=== PATIENT | male | born 1995 | race Caucasian/White ===

== ENCOUNTER 2017-01-07 01:58 | Emergency (ER) | payer SELFPAY ==
[~2017-01-07] VITALS: Ht 185.4 cm; Wt 77.1 kg
[~2017-01-07 01:58] MED LIST: AMOXICILLIN500 M2 PO; AUGMENTIN 400 M1 CTB PO; MOTRIN400 MG PO; TYLENOL W/CODEI1 TA2 PO
[2017-01-07 02:07] VITALS: BP 156/89
[2017-01-07 02:50] LABS: BILIRUBIN NEGATIVE (NEGATIVE); BLOOD 3+ (NEGATIVE); CLARITY SL CLOUDY (CLEAR); COLOR RED (YELLOW); GLUCOSE NEGATIVE (NEGATIVE); KETONE NEGATIVE (NEGATIVE); LEUKO ESTERASE NEGATIVE (NEGATIVE); NITRITE NEGATIVE (NEGATIVE); PH 5.5 (5.0-9.0); PROTEIN TRACE (NEGATIVE); SPECIFIC GRAVITY 1.025 (1.005-1.030); UROBILINOGEN 0.2 E.U./dl (0.2-1.0)
[2017-01-07 02:51] LABS: BASO # 0.1 10*3/uL (0.0-0.1); BASO % 0.6 % (0.0-1.0); EOS # 0.1 10*3/uL (0.0-0.4); EOS % 0.9 % (1.0-4.0); HEMATOCRIT 48.3 % (42.0-52.0); HEMOGLOBIN 16.4 g/dl (14.0-18.0); IG # 0.1 10*3/uL (0.0-0.1); LYMPH % 24.4 % (27.0-41.0); MEAN CELL VOLUME 88.8 fl (80.0-94.0); MEAN CORPUSCULAR HGB 30.1 pg (27.0-31.0); MEAN PLATELET VOLUME 9.3 fl (9.6-12.3); MONO # 0.7 10*3/uL (0.1-1.0); MONO % 5.3 % (3.0-9.0); NEUT # 8.5 10*3/uL (2.3-7.9); NEUT % 68.3 % (47.0-73.0); PLATELET COUNT AUTOMATED 332 10*3/uL (130-400); RED BLOOD COUNT 5.44 10*6/uL (4.50-5.90); RED CELL DISTRI WIDTH 12.8 % (0-14.5); WHITE BLOOD COUNT 12.5 10*3/uL (4.8-10.8)
[2017-01-07 02:55] LABS: RBC TNTC rbc/hpf (0-2)
[2017-01-07 03:00] LABS: URINE REFLEX COMMENT YES (NO)
[2017-01-07 03:05] LABS: ALBUMIN 4.2 gm/dl (3.1-4.5); ALKALINE PHOSPHATASE 63 U/L (45-117); BILIRUBIN, TOTAL 0.4 mg/dl (0.2-1.0); BUN 8 mg/dl (7-24); CARBON DIOXIDE 26 mmol/L (21-32); CHLORIDE 106 mmol/L (98-107); EST GLOM FILT AFRICAN AMERICAN > 60 ml/min; GLUCOSE 91 mg/dL (65-99); POTASSIUM 3.3 mmol/L (3.5-5.1); SGOT/AST 18 IU/L (3-35); SGPT/ALT 22 U/L (12-78); SODIUM 143 mmol/L (136-145); TOTAL PROTEIN 7.3 gm/dL (6.4-8.2)
[2017-01-07 03:09] LABS: C-REACTIVE PROTEIN < 0.29 MG/DL (0-0.3)
[2017-01-07] MEDS ORDERED: ZOFRAN ODT4 MG SL (04:09)
[2017-01-07] MEDS ORDERED: PERCOCET 325 MG1 TA2 PO (04:09)
[2017-01-07] MEDS ORDERED: KETOROLAC10 MG PO (04:09)
== END 2017-01-07 04:54 | disposition home or self-care (01) ==
LOC: ED 01:58
PROVIDERS: Emergency Medicine Emergency Medical Services
DX: N20.1 Calculus of ureter (principal); N23 Unspecified renal colic; F17.200 Nicotine dependence, unspecified, uncomplicated

== ENCOUNTER 2017-01-13 01:07 | Emergency (ER) | payer OTHER ==
[~2017-01-13] VITALS: Ht 185.4 cm; Wt 77.1 kg
[~2017-01-13 01:07] MED LIST changes: +KETOROLAC10 MG PO; +PERCOCET 325 MG1 TA2 PO; +ZOFRAN ODT4 MG SL
[2017-01-13 01:12] VITALS: BP 160/91
== END 2017-01-13 01:49 | disposition home or self-care (01) ==
LOC: ED 01:07
DX: N23 Unspecified renal colic (principal); Z87.442 Personal history of urinary calculi; F17.200 Nicotine dependence, unspecified, uncomplicated

== ENCOUNTER 2017-04-21 16:35 | Emergency (ER) | payer OTHER ==
[~2017-04-21] VITALS: Ht 185.4 cm; Wt 77.1 kg
[2017-04-21 16:40] VITALS: BP 155/73
== END 2017-04-21 18:42 | disposition home or self-care (01) ==
LOC: ED 16:35
DX: S86.911A Strain of unspecified muscle(s) and tendon(s) at lower leg level, right leg, initial encounter (principal); F17.200 Nicotine dependence, unspecified, uncomplicated; X50.9XXA Other and unspecified overexertion or strenuous movements or postures, initial encounter; Y93.89 Activity, other specified; Y92.89 Other specified places as the place of occurrence of the external cause; Y99.9 Unspecified external cause status

== ENCOUNTER 2018-08-21 16:15 | Emergency (ER) | payer SELFPAY ==
[~2018-08-21] VITALS: Ht 182.8 cm; Wt 81.6 kg
[2018-08-21 16:15] VITALS: BP 139/69
[2018-08-21] MEDS ORDERED: Motrin,Rufen800 MG PO (17:59)
[2019-02-21] MEDS ORDERED: ALEVE220 M1 PO (15:10)
[2019-02-21] MEDS ORDERED: MEDROL DOSEPAK4 MG PO (16:25)
[2019-02-21] MEDS ORDERED: CYCLOBENZAPRINE10 MG PO (16:25)
== END 2018-08-21 18:03 | disposition home or self-care (01) ==
LOC: ED 16:15
DX: S46.912A Strain of unspecified muscle, fascia and tendon at shoulder and upper arm level, left arm, initial encounter (principal); F17.200 Nicotine dependence, unspecified, uncomplicated; W00.0XXA Fall on same level due to ice and snow, initial encounter; Y93.89 Activity, other specified; Y92.89 Other specified places as the place of occurrence of the external cause; Y99.8 Other external cause status

== ENCOUNTER 2019-01-21 20:19 | Emergency (ER) | payer SELFPAY ==
[~2019-01-21] VITALS: Ht 182.8 cm; Wt 81.6 kg
[~2019-01-21 20:19] MED LIST changes: +Motrin,Rufen800 MG PO
[2019-01-21 20:22] VITALS: BP 157/90
[2019-01-21 20:42] LABS: BILIRUBIN NEGATIVE (NEGATIVE); BLOOD NEGATIVE (NEGATIVE); CLARITY CLEAR (CLEAR); COLOR YELLOW (YELLOW); GLUCOSE NEGATIVE (NEGATIVE); KETONE NEGATIVE (NEGATIVE); LEUKO ESTERASE NEGATIVE (NEGATIVE); NITRITE NEGATIVE (NEGATIVE); PH 6.5 (5.0-9.0)
[2019-01-21 20:51] LABS: BACTERIA TRACE; EPITHELIAL CELLS 0-2; WBC 0-2 wbc/hpf (0-5)
[2019-01-21] MEDS ORDERED: NAPROSYN500 MG PO (20:55)
[2019-02-21] MEDS ORDERED: ALEVE220 M1 PO (15:10)
[2019-02-21] MEDS ORDERED: MEDROL DOSEPAK4 MG PO (16:25)
[2019-02-21] MEDS ORDERED: CYCLOBENZAPRINE10 MG PO (16:25)
== END 2019-01-21 21:10 | disposition home or self-care (01) ==
LOC: ED 20:19
PROVIDERS: Emergency Medicine Emergency Medical Services
DX: R10.9 Unspecified abdominal pain (principal); M54.9 Dorsalgia, unspecified; Z87.442 Personal history of urinary calculi

== ENCOUNTER 2019-05-22 01:53 | Emergency (ER) | payer SELFPAY ==
[~2019-05-22] VITALS: Ht 182.8 cm; Wt 81.6 kg
[~2019-05-22 01:53] MED LIST changes: +ALEVE220 M1 PO; +CYCLOBENZAPRINE10 MG PO; +MEDROL DOSEPAK4 MG PO; +NAPROSYN500 MG PO
[2019-05-22 01:54] VITALS: BP 139/85
[2019-05-22] MEDS ORDERED: NORCO 5-325 TA1 EACH PO (03:43)
== END 2019-05-22 04:06 | disposition home or self-care (01) ==
LOC: ED 01:53
DX: S52.124A Nondisplaced fracture of head of right radius, initial encounter for closed fracture (principal); Y08.89XA Assault by other specified means, initial encounter; Y93.89 Activity, other specified; Y92.89 Other specified places as the place of occurrence of the external cause; Y99.8 Other external cause status

== ENCOUNTER 2019-06-21 16:50 | Emergency (ER) | payer SELFPAY ==
[~2019-06-21] VITALS: Ht 182.8 cm; Wt 81.6 kg
[~2019-06-21 16:50] MED LIST changes: +NORCO 5-325 TA1 EACH PO
[2019-06-21 16:51] VITALS: BP 141/90
== END 2019-06-21 19:05 | disposition home or self-care (01) ==
LOC: ED 16:50
DX: M25.421 Effusion, right elbow (principal); S52.124G Nondisplaced fracture of head of right radius, subsequent encounter for closed fracture with delayed healing; X58.XXXD Exposure to other specified factors, subsequent encounter; Y08.89XD Assault by other specified means, subsequent encounter

== ENCOUNTER 2020-03-25 13:53 | Emergency (ER) | payer SELFPAY ==
[~2020-03-25] VITALS: Ht 182 cm; Wt 81.6 kg
[2020-03-25 13:57] VITALS: BP 144/89
== END 2020-03-25 15:25 | disposition home or self-care (01) ==
LOC: ED 13:53
DX: S66.811A Strain of other specified muscles, fascia and tendons at wrist and hand level, right hand, initial encounter (principal); F41.9 Anxiety disorder, unspecified; Z79.899 Other long term (current) drug therapy; X58.XXXA Exposure to other specified factors, initial encounter; Y93.89 Activity, other specified; Y92.89 Other specified places as the place of occurrence of the external cause; Y99.8 Other external cause status

== ENCOUNTER 2020-07-10 17:53 | Emergency (ER) | payer SELFPAY ==
[~2020-07-10] VITALS: Ht 182.8 cm; Wt 81.6 kg
[2020-07-10 18:45] VITALS: BP 164/90
== END 2020-07-10 21:45 | disposition left against medical advice (07) ==
LOC: ED 17:53
DX: S00.81XA Abrasion of other part of head, initial encounter (principal); S00.511A Abrasion of lip, initial encounter; Z53.21 Procedure and treatment not carried out due to patient leaving prior to being seen by health care provider; Y08.89XA Assault by other specified means, initial encounter; Y93.89 Activity, other specified; Y92.89 Other specified places as the place of occurrence of the external cause; Y99.8 Other external cause status

== ENCOUNTER 2020-07-10 22:02 | Emergency (ER) | payer SELFPAY | END 2020-07-10 22:18 | disposition left against medical advice (07) | LOC: ED 22:02 | DX: Z53.21 Procedure and treatment not carried out due to patient leaving prior to being seen by health care provider (principal) ==

== ENCOUNTER 2020-07-12 08:12 | Emergency (ER) | payer SELFPAY ==
[~2020-07-12] VITALS: Ht 182.8 cm; Wt 81.6 kg
[2020-07-12 08:17] VITALS: BP 154/94
== END 2020-07-12 10:00 | disposition home or self-care (01) ==
LOC: ED 08:12
DX: S52.612A Displaced fracture of left ulna styloid process, initial encounter for closed fracture (principal); S00.83XA Contusion of other part of head, initial encounter; F41.9 Anxiety disorder, unspecified; X58.XXXA Exposure to other specified factors, initial encounter; Y93.89 Activity, other specified; Y92.89 Other specified places as the place of occurrence of the external cause; Y99.8 Other external cause status

== ENCOUNTER 2021-01-28 08:40 | Emergency (ER) | payer SELFPAY ==
[~2021-01-28] VITALS: Ht 91.4 cm; Wt 90.7 kg
[2021-01-28 08:44] VITALS: BP 152/90
[2021-01-28 09:13] LABS: BASO # 0.1 10*3/uL (0.0-0.1); BASO % 0.5 % (0.0-1.0); EOS # 0.1 10*3/uL (0.0-0.4); EOS % 1.2 % (1.0-4.0); HEMATOCRIT 47.2 % (42.0-52.0); LYMPH # 2.2 10*3/uL (1.3-4.4); LYMPH % 19.8 % (27.0-41.0); MEAN CELL VOLUME 88.4 fl (80.0-94.0); MEAN CORPUSCULAR HGB 30.1 pg (27.0-31.0); MEAN CORPUSCULAR HGB CONC 34.1 g/dl (33.0-37.0); MEAN PLATELET VOLUME 9.2 fl (9.6-12.3); MONO # 0.8 10*3/uL (0.1-1.0); MONO % 7.1 % (3.0-9.0); NEUT # 7.9 10*3/uL (2.3-7.9); PLATELET COUNT AUTOMATED 312 10*3/uL (130-400); RED BLOOD COUNT 5.34 10*6/uL (4.50-5.90); RED CELL DISTRI WIDTH 12.7 % (0-14.5); WHITE BLOOD COUNT 11.1 10*3/uL (4.8-10.8)
[2021-01-28 09:24] LABS: ALBUMIN 3.8 gm/dl (3.1-4.5); ALKALINE PHOSPHATASE 76 U/L (45-117); BUN 11 mg/dl (7-24); CHLORIDE 106 mmol/L (98-107); CREATININE 0.76 mg/dL (0.70-1.30); LIPASE 121 U/L (73-393); POTASSIUM 3.9 mmol/L (3.5-5.1); SGOT/AST 20 IU/L (3-35); SGPT/ALT 32 U/L (12-78); SODIUM 135 mmol/L (136-145); TOTAL PROTEIN 7.2 gm/dL (6.4-8.2)
[2021-01-28 09:50] LABS: BILIRUBIN Negative (Negative); BLOOD 3+ (Negative); CLARITY Cloudy (Clear); COLOR Orange (Yellow); GLUCOSE Negative (Negative); KETONE Trace (Negative); LEUKO ESTERASE Trace (Negative); NITRITE Negative (Negative); RBC TNTC rbc/hpf (0-2)
== END 2021-01-28 10:35 | disposition home or self-care (01) ==
LOC: ED 08:40
PROVIDERS: Emergency Medicine
DX: N13.2 Hydronephrosis with renal and ureteral calculous obstruction (principal); F17.200 Nicotine dependence, unspecified, uncomplicated; Z87.442 Personal history of urinary calculi

== ENCOUNTER 2022-06-15 17:21 | Emergency (ER) | payer SELFPAY ==
[~2022-06-15] VITALS: Ht 182.8 cm; Wt 83.9 kg
[2022-06-15 17:57] VITALS: BP 144/77
== END 2022-06-15 18:46 | disposition home or self-care (01) ==
LOC: ED 17:21
DX: R53.83 Other fatigue (principal)

== ENCOUNTER 2023-02-06 12:21 | Emergency (ER) | payer SELFPAY ==
[~2023-02-06] VITALS: Ht 182.8 cm; Wt 81.6 kg
[2023-02-06 12:38] VITALS: BP 144/94
[2023-02-06] MEDS ORDERED: NAPROSYN500 MG PO (14:24)
== END 2023-02-06 14:39 | disposition home or self-care (01) ==
LOC: ED 12:21
DX: S93.402A Sprain of unspecified ligament of left ankle, initial encounter (principal); W10.9XXA Fall (on) (from) unspecified stairs and steps, initial encounter; Y93.89 Activity, other specified; Y92.89 Other specified places as the place of occurrence of the external cause; Y99.8 Other external cause status

== ENCOUNTER 2023-06-01 10:49 | Emergency (ER) | payer SELFPAY ==
[~2023-06-01] VITALS: Wt 86.2 kg
[2023-06-01 10:58] VITALS: BP 143/93
[2023-06-01] MEDS ORDERED: AMOX-CLAV 875-1 EACH PO (11:33)
== END 2023-06-01 12:00 | disposition home or self-care (01) ==
LOC: ED 10:49
DX: H66.93 Otitis media, unspecified, bilateral (principal); F41.9 Anxiety disorder, unspecified; Z87.442 Personal history of urinary calculi; Z98.890 Other specified postprocedural states

== ENCOUNTER 2024-02-17 13:58 | Emergency (ER) | payer SELFPAY ==
[~2024-02-17] VITALS: Ht 182.8 cm; Wt 86.2 kg
[~2024-02-17 13:58] MED LIST changes: +AMOX-CLAV 875-1 EACH PO
[2024-02-17 14:27] VITALS: BP 169/98
[2024-02-17] MEDS ORDERED: Ketorolac Tromethamine 60 MG/2 ML VIAL IM ONE (16:50)
[2024-02-17] MEDS ORDERED: Dexamethasone Sodium Phospha 20 MG/5 ML VIAL IM ONE (16:50)
[2024-02-17] MEDS ORDERED: Cyclobenzaprine Hydrochlorid 10 MG TAB PO ONE (16:50)
[2024-02-17] MEDS ORDERED: LIDOCAINE 1 EA PATCH T ONE (16:50)
[2024-02-17] MEDS ORDERED: CYCLOBENZAPRINE5 M3 PO (18:58)
[2024-02-17] MEDS ORDERED: MELOXICAM15 MG PO (18:58)
[2024-02-17] MEDS ORDERED: LIDO KING1 EACH T (18:59)
[2024-02-17] MEDS ORDERED: MEDROL DOSEPAK4 MG PO (18:59)
== END 2024-02-17 19:05 | disposition home or self-care (01) ==
LOC: ED 13:58
DX: M62.830 Muscle spasm of back (principal); M54.50 Low back pain, unspecified; Z79.899 Other long term (current) drug therapy; Z79.2 Long term (current) use of antibiotics

== ENCOUNTER 2025-01-04 15:36 | Emergency (ER) | payer SELFPAY ==
[~2025-01-04] VITALS: Wt 95.3 kg
[~2025-01-04 15:36] MED LIST changes: +CYCLOBENZAPRINE5 M3 PO; +LIDO KING1 EACH T; +MELOXICAM15 MG PO
[2025-01-04 15:54] VITALS: BP 140/95
[2025-01-04] MEDS ORDERED: PREDNISONE20 M1 PO (17:06)
[2025-01-04] MEDS ORDERED: METHOCARBAMOL750 M1 PO (17:06)
[2025-01-04] MEDS ORDERED: methylPREDNISolone sod succ 125 MG VIAL IM ONE (17:10)
[2025-01-04] MEDS ORDERED: Acetaminophen/Oxycodone 5 MG/325 MG TABLET PO ONE (17:10)
== END 2025-01-04 17:26 | disposition home or self-care (01) ==
LOC: ED 15:36
DX: S39.012A Strain of muscle, fascia and tendon of lower back, initial encounter (principal); M54.31 Sciatica, right side; F41.9 Anxiety disorder, unspecified; Z79.899 Other long term (current) drug therapy; X58.XXXA Exposure to other specified factors, initial encounter; Y93.89 Activity, other specified; Y92.89 Other specified places as the place of occurrence of the external cause; Y99.8 Other external cause status